=== PATIENT | male | born 1980 | race Caucasian/White ===

== ENCOUNTER → 2016-12-22 | Outpatient (CLI) | payer MEDICAID ==
[2016-12-22 13:30] LABS: CHLORIDE,CL 107 mmol/L (98-110); SODIUM,NA 141 mmol/L (136-146)
== END ==
LOC: MW.CHRC 12:45
PROVIDERS: ATTEND Family Medicine
DX: S14.2 Injury of nerve root of cervical spine (principal); G89.29 Other chronic pain; R30.0 Dysuria
CPT/HCPCS: 36415; 80053

== ENCOUNTER 2017-02-08 15:32 | Emergency (ER) | payer MEDICAID, OTHER ==
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
[2017-02-08] MEDS ORDERED: LORazepam 2 MG/ML MDV IVPUSH ONE (15:47)
--- NOTE | 2017-02-08 17:05 | CR ---
EXAM DATE: 02/08/17 PATIENT'S AGE: 36 Patient: KARIN MARTIN Facility: [place], [place] Site . Site : 1980 Study: XRay Chest [id number] 4:33:34 PM Ordering Physician: Sonam Otero Final Report: Indication: Pain and shortness of breath Technique: Chest 1 view. Comparison: None Findings: Cardiovascular and mediastinum: Heart size and vasculature are normal in caliber and appearance. Mediastinum is within normal limits. Lungs and pleural space: Lungs are clear. No sign of infiltrate or mass. No sign of pleural effusion. No pneumothorax. Bones and soft tissues: No acute findings. Surgical hardware projects over the lower cervical spine Impression: No sign of acute disease. Dictated by Shelia Witt MD @ Feb 08 2017 4:33PM (Electronic Signature) Report Signed by Proxy. IMELDA
[2017-02-08 17:12] LABS: CHLORIDE,CL 105 mmol/L (98-110); SODIUM,NA 140 mmol/L (136-146)
[2017-02-08 17:18] LABS: ACETAMINOPHEN < 3.0 ug/mL
[2017-02-08 18:50] VITALS: BP 124/82
== END 2017-02-08 18:28 | disposition home or self-care (01) ==
LOC: MW.ED 15:32
DX: F33.9 Major depressive disorder, recurrent, unspecified (principal); R45.851 Suicidal ideations; F41.9 Anxiety disorder, unspecified; G89.4 Chronic pain syndrome; F17.200 Nicotine dependence, unspecified, uncomplicated; Z87.820 Personal history of traumatic brain injury; Z87.828 Personal history of other (healed) physical injury and trauma; Z79.899 Other long term (current) drug therapy; Z79.891 Long term (current) use of opiate analgesic; Z91.048 Other nonmedicinal substance allergy status
CPT/HCPCS: 36415; 71010; 80053; 80305; 81001; 84443; 84484; 85025; 93005; 96374; 99285; G0480; J2060; 99284